=== PATIENT | female | born 1945 | race Caucasian/White ===

== ENCOUNTER 2019-08-30 13:55 | Outpatient (CLI) | payer MEDICARE, SELFPAY ==
--- NOTE | 2019-08-30 | XR_ITS ---
WS: [id number] SCREENING DEXA SCAN [employer] CLINICAL INFORMATION: POSTMENOPAUSAL COMPARISON: FINDINGS: The L1-L4 bone mineral density measures -0.5. This corresponds to a T score score of -0.5 and Z score of 0.7. Left femoral neck bone mineral density measures 1.086. This corresponds to a T score of 0.6 and Z sco re of 1.9. Right femoral neck bone mineral density measures 1.028. This corresponds to a T score 0.2of and Z sco re of 1.5. Mean femoral neck bone mineral density measures 1.057. This corresponds to a T score of 0.4 and Z sco re of 1.7. XR/XR DEXA axial skeleton* [id number] IMPRESSION: Normal bone mineralization. Patient's FRAX calculated 10 year probability for major osteoporotic fracture i s 8.2 % and osteoporotic hip fracture is 0.8%.
--- NOTE | 2019-08-30 14:05 | XR_ITS ---
WS: [id number] SCREENING DEXA SCAN [employer] CLINICAL INFORMATION: POSTMENOPAUSAL COMPARISON: 017 FINDINGS: The L1-L4 bone mineral density measures -0.5. This corresponds to a T score score of -0.5 and Z score of 0.7. Left femoral neck bone mineral density measures 1.086. This corresponds to a T score of 0.6 and Z sco re of 1.9. Right femoral neck bone mineral density measures 1.028. This corresponds to a T score 0.2of and Z sco re of 1.5. Mean femoral neck bone mineral density measures 1.057. This corresponds to a T score of 0.4 and Z sco re of 1.7.
== END 2019-08-30 13:56 | disposition home or self-care (01) ==
PROVIDERS: Family Provider Physician Assistant; PCP Physician Assistant; Referring Provider Physician Assistant; Visit Provider Nurse Practitioner Women's Health
DX: Z78.0 Asymptomatic menopausal state (principal)
CPT/HCPCS: 77080

== ENCOUNTER 2020-01-27 12:01 | Outpatient (RCR) | payer MEDICARE, SELFPAY | END 2020-02-13 13:34 | disposition home or self-care (01) | LOC: SPT 12:01 | PROVIDERS: PCP Physician Assistant; Referring Provider Physician Assistant; Visit Provider Physician Assistant | DX: M25.512 Pain in left shoulder (principal); S16.1XXD Strain of muscle, fascia and tendon at neck level, subsequent encounter; X58.XXXD Exposure to other specified factors, subsequent encounter | CPT/HCPCS: 97110; 97140; 97162 ==

== ENCOUNTER → 2020-04-23 14:30 | Outpatient (BNVA) | payer MEDICARE, SELFPAY | PROVIDERS: PCP Physician Assistant; Referring Provider Dermatology; Visit Provider Dermatology | DX: Z85.828 Personal history of other malignant neoplasm of skin (principal); L57.0 Actinic keratosis; L72.0 Epidermal cyst; D18.01 Hemangioma of skin and subcutaneous tissue; L81.4 Other melanin hyperpigmentation; L82.1 Other seborrheic keratosis | CPT/HCPCS: 17000; 99203 ==

== ENCOUNTER 2020-07-20 09:34 | Outpatient (CLI) | payer MEDICARE, SELFPAY ==
--- NOTE | 2020-07-20 09:54 | MM_ITS ---
WS: [id number] BILATERAL DIGITAL SCREENING MAMMOGRAPHY WITH CAD CLINICAL INFORMATION: SCREENING HISTORY: Screening mammogram. No current complaints. COMPARISON: July 18, 2019. TECHNIQUE: Bilateral CC and MLO views. FINDINGS: Scattered fibroglandular densities bilaterally. No suspicious focal mass, asymmetry, calcifications, or architectural distortion. No evidence of malignancy. Benign punctate calcifications both breasts. MM/[place] [id number] IMPRESSION: BI-RADS: 2-Benign FOLLOW UP: 1 Year Follow-up Recommend return to annual screening mammography.
== END 2020-07-20 09:35 | disposition home or self-care (01) ==
LOC: RADSHAW 09:37
PROVIDERS: PCP Physician Assistant; Visit Provider Physician Assistant
DX: Z12.31 Encounter for screening mammogram for malignant neoplasm of breast (principal)
CPT/HCPCS: 77067

== ENCOUNTER 2021-03-04 06:59 | Outpatient (CLI) | payer MEDICARE, SELFPAY ==
--- NOTE | 2021-03-04 07:15 | ECG_ITS ---
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 Baseline heart rate was 69 beats per minute. Baseline blood pressure was 111/91 millimeters of mercury. Target heart rate was 146 beats per minute. Maximum heart rate achieved was 134, which was 91 % of the target heart rate. Maximum blood pressure was 169/107 millimeters of mercury. Total exercise time was 5 minutes 57-seconds. Maximum METs achieved was 7.0, maximum VO2 was 24.5. The reason for ending the test was maximum effort achieved. The patient complained of shortness of breath during the stress test, which then resolved at the end of the test. ELECTROCARDIOGRAM: BASELINE: Showed sinus rhythm, normal axis, anterolateral T wave inversion cannot rule out ischemia EXERCISE: At the peak exercise level, no significant ST-T changes suggestive of ischemia noted. RECOVERY: During the recovery period, heart rate dropped appropriately. No significant ST-T changes in the recovery suggestive of ischemia noted. CONCLUSION: 1. Exercise capacity fair. 2. Heart rate response was appropriate. 3. Blood pressure response was appropriate. 4. Symptoms not suggestive of ischemia. 5. Electrocardiogram portion of the stress test was not suggestive of ischemia. 6. Nuclear scan will be documented separately. Electronically Signed On 03-05-2021 14:41:28 CDT by VALENCIA MEDRANO [email or web address]
--- NOTE | 2021-03-04 07:16 | NMCV_ITS ---
NM alcides perf SPECT r/s* [id number] Cindy Soto Age: 75 Gender: F : 1945 Exam Date: 03/04/2021 08:21 Ordering Phys: Destiny Stanley Technologist: KASIA Good Exam Location: [facility] Indications: SHORTNESS OF BREATH STRESS TEST Please see separate stress test report in [facility] for full findings IMAGE PROTOCOL Rest/Stress 1 Exercise Day Radiopharmaceutical Dose (mCi) Administration Site Administered by Rest: Tc-99m 10.8 IV KASIA Glass Sestamibi Stress:Tc-99m 32.8 IV KASIA Good Sestaminicole Rest: 04-Mar-2021 60 Discovery 630 Stress: 04-Mar-2021 15 Discovery 630 Radiopharmaceutical was injected at 89 % maximum heart rate. Images obtained in supine and prone position. SPECT RESULTS Technical Quality: Excellent Raw Data Analysis: Normal Image Corrections: No attenuation or motion correction applied Summed Stress Score: 0 Summed Rest Score: 0 Summed Difference Score: 0 PERFUSION FINDINGS SPECT images demonstrate homogeneous tracer distribution throughout the myocardium. FUNCTIONAL RESULTS (calculated via Gated SPECT) Stress Image LV EF (%): 72 Stress EDV (mL):68 TID: 0.95 Stress ESV (mL):19 Rest Image LV EF (%): 72 FUNCTIONAL FINDINGS: There is normal left ventricular systolic function. IMPRESSIONS Myocardial perfusion imaging is normal. It is low probability for obstructive coronary artery disease. EKG segment will be documented separately. Prince Kim MD (Electronically Signed) Final Date: 04 March 2021 13:56 S
[2021-03-04 07:17] VITALS: BMI 33.0
[2021-03-04 09:44] VITALS: BP 117/90; PULSE 81
== END 2021-03-04 07:00 | disposition home or self-care (01) ==
LOC: RAD 07:04 → CDL 07:15
PROVIDERS: PCP Physician Assistant; Visit Provider Physician Assistant
DX: R06.02 Shortness of breath (principal)
CPT/HCPCS: 78452; 93017; A9500

== ENCOUNTER 2021-07-26 07:58 | Outpatient (CLI) | payer MEDICARE, SELFPAY ==
--- NOTE | 2021-07-26 08:06 | MM_ITS ---
WS: [id number] BILATERAL SCREENING DIGITAL MAMMOGRAM WITH CAD HISTORY: SCREENING COMPARISON: 11/18/2019, 09/17/2018 Bilateral CC and MLO views submitted. Computer aided detection analyzed. Breast composition: There are scattered areas of fibroglandular density. No suspicious masses, microc alcifications or architectural distortion. Benign calcifications within each breast. MM/[place] [id number] IMPRESSION: BI-RADS: 2-Benign FOLLOW UP: 1 Year Follow-up
== END 2021-07-26 07:59 | disposition home or self-care (01) ==
LOC: RADSHAW 08:02
PROVIDERS: PCP Physician Assistant; Visit Provider Physician Assistant
DX: Z12.31 Encounter for screening mammogram for malignant neoplasm of breast (principal)
CPT/HCPCS: 77067

== ENCOUNTER 2022-01-24 07:33 | Emergency (ER) | payer MEDICARE, SELFPAY ==
[2022-01-24 07:38] VITALS: BP 170/87; PULSE 61; RESP 14; TEMP 36.7; O2SAT 95; BMI 31.1
--- NOTE | 2022-01-24 08:07 | CTR_ITS ---
PROCEDURE INFORMATION: Exam: CT Head Without Contrast Exam date and time: 01/24/2022 8:19 AM Age: 76 years old Clinical indication: Pain; Patient HX: C/O worsening persistent occipital headache x 2 weeks. TECHNIQUE: Imaging protocol: Computed tomography of the head without contrast. Radiation optimization: All CT scans at this facility use at least one of these dose optimization techniques: automated exposure control; mA and/or kV adjustment per patient size (includes targeted exams where dose is matched to clinical indication); or iterative reconstruction. COMPARISON: CR XR cervical spine 4-5V [id number] 01/23/2020 11:31 AM RADIATION DOSE METRICS: Total DLP (mGy-cm): 970.6 FINDINGS: Brain: No acute hemorrhage identified. No large territorial areas of hypoattenuation concerning for ischemic infarct identified. No intracranial mass effect. Cerebral ventricles: The ventricles are within normal limits. Paranasal sinuses: The visualized sinuses are unremarkable. Mastoid air cells: The visualized mastoid air cells are well aerated. Bones/joints: The osseous structures are intact. Soft tissues: Unremarkable. CT/CT head wo con* [id number] IMPRESSION: No acute intracranial abnormality.
--- NOTE | 2022-01-24 08:42 | ED_ITS ---
HPI - Headache General: Chief Complaint: Headache Stated Complaint: Back of Head aching around to the ear Time Seen by Provider: 01/24/22 07:53 History of Present Illness: Patient comes in with pain in the back of her head. She describes it as an ache, that starts in her left occipital region and radiates to around her left ear. States she had an episode similar to this about 6 months ago that resolved. States this episode started about 2 weeks ago and has been constant. States that she is also dealing with a tooth that needs to be repaired. States it is in her left lower posterior jaw. States she is scheduled to have it taken care of tomorrow. Associated symptoms: Deny chest pain, fever(s), nausea, rash or vomiting Review of Systems Const: Denies: fever(s) or body aches Eyes: Denies: change in vision or blurry vision ENMT: Denies: throat pain or odynophagia Card: Denies: chest pain or palpitations Resp: Denies: dyspnea or productive cough GI: Denies: abdominal pain, nausea or vomiting : Denies: flank pain or dysuria Musc: Denies: neck pain or back pain Skin/Breast: Denies: rash or pruritus Neuro: Reports: headache(s); Denies: numbness in extremities Psych: Denies: anxiety or change in appetite Endo: Denies: polyuria or excessive sweating PFSH ED PFSH: Medical History (Updated 01/24/22 @ 09:05 by Nathaniel Cowan MD) Anal skin tag (~2007) 08/14/08- excision of external hemorrhoids/ anal tag. DX: external hemorroid/ tag. Performed by DR Wallis. Glaucoma History of closed shoulder dislocation History of failure to thrive syndrome History of nonmelanoma skin cancer Hypertension No pertinent past medical history neghx:dm,thyroid,dvt/pe PCP: Destiny ASHLEY Postmenopausal Recurrent oral herpes simplex Surgical History (Updated 12/23/21 @ 15:58 by Sariah Mancuso APN, CANDELARIA) H/O eye surgery (~11/2021) Hx of arthroscopic knee surgery (~2005) Hx of carpal tunnel repair (~2012) Hx of cataract surgery (~2014) Hx of hysterectomy (~2000) -----> NORM , BSO for fibroid ------> 2000- Performed at [facility] [place] by Dr Montgomery Hx of rotator cuff surgery (~2014) 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 Hx of tubal ligation Family History Mother Breast cancer dx age 70's Colon cancer dx age 50's Hypercholesteremia Hypertension Cervical cancer dx age late 70's Father Thyroid disease Denies family history of Ovarian cancer Diabetes Heart disease Uterine cancer Stroke Physical Exam Const: COMMON NORMALS: no acute distress, patient oriented x3, healthy appearing and alert HENMT: COMMON NORMALS: normocephalic and atraumatic HEAD & SCALP: normocephalic and atraumatic Eye: COMMON NORMALS: Equal, round and reactive pupils present and EOMs intact bilaterally PUPIL: Yes Equal, round and reactive pupils present Neck/C-Spine: COMMON NORMALS: full ROM and supple Resp: COMMON NORMALS: normal respiratory effort, No retractions and No use of accessory muscles Cardio: COMMON NORMALS: regular rate and regular rhythm RATE: regular rate RHYTHM: regular rhythm GI: COMMON NORMALS: Normal to inspection, nondistended, normoactive bowel sounds present, Soft to palpation and non-tender PALPATION: Yes Soft to palpation Back/Pelvis: COMMON NORMALS: thoracic and lumbar spine normal to inspection and no thoracic nor lumbar tenderness Extremity: COMMON NORMALS: normal to inspection and full ROM Neuro: COMMON NORMALS: patient oriented x3 SENSORIUM/ORIENTATION: Yes alert Psych: COMMON NORMALS: mental status grossly normal and cooperative Skin: COMMON NORMALS: no rashes or lesions noted and no wounds GENERAL SKIN EXAM: no rashes or lesions noted Course Vital Signs: Vital signs: Vital Signs Temperature 98.0 F 01/24/22 07:38 Pulse Rate 61 01/24/22 07:38 Respiratory Rate 14 01/24/22 07:38 Blood Pressure 170/87 01/24/22 07:38 Pulse Oximetry 95 01/24/22 07:38 MDM - Headache Medical Decision Making Patient comes in with pain in the back of her head. She describes it as an ache, that starts in her left occipital region and radiates to around her left ear. States she had an episode similar to this about 6 months ago that resolved. States this episode started about 2 weeks ago and has been constant. States that she is also dealing with a tooth that needs to be repaired. States it is in her left lower posterior jaw. States she is scheduled to have it taken care of tomorrow. Physical exam is unremarkable. Will check CT scan, and reassess. On reassessment I talked to the patient about the test results. Will discharge home at this time with precautions return for worsening or changing symptoms. Lab Data Radiology Impressions Head CT 01/24/22 08:07 IMPRESSION: No acute intracranial abnormality. Discharge Plan Discharge Patient Disposition: Home Clinical Impression: Occipital pain Condition: Stable Prescriptions: No Action acyclovir 400 mg tablet 400 mg PO BID PRN0RF atorvastatin 10 mg tablet 10 mg PO DAILY 0RF Lumigan 0.01 % drops 1 drop ophthalmic (eye) DAILY 0RF lisinopril 10 mg tablet 10 mg PO DAILY 0RF escitalopram oxalate 10 mg tablet 10 mg PO DAILY 0RF multivitamin Tablet 1 tab PO DAILY 0RF Premarin 0.625 mg/gram cream See Rx Instructions .ROUTE .COMPLEX Qty: 30 3RF Dose Instruction: INSERT 0.3125MG (1/2 GRAM) VAGINALLY TWICE PER WEEK Rx Instructions: INSERT 0.3125MG (1/2 GRAM) VAGINALLY TWICE PER WEEK Discharge Orders: Discharge ED (Routine); Ordered 01/24/22 Ordered By: Nathaniel Cowan Referrals: Destiny Stanley PA [Primary Care Provider] - Coding Level of Care Code ED Bit[employer] 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
== END 2022-01-24 09:16 | disposition home or self-care (01) ==
PROVIDERS: Emergency Provider Emergency Medicine; PCP Physician Assistant
DX: M54.81 Occipital neuralgia (principal)
CPT/HCPCS: 70450; 99283

== ENCOUNTER 2022-02-01 06:00 | Outpatient (RCR) | payer MEDICARE, SELFPAY | END 2022-02-24 23:59 | disposition home or self-care (01) | LOC: SPT 06:00 | PROVIDERS: PCP Physician Assistant; Referring Provider Physician Assistant; Visit Provider Physician Assistant | DX: M54.2 Cervicalgia (principal) | CPT/HCPCS: 97035; 97110; 97140; 97162 ==

== ENCOUNTER 2022-02-24 08:38 | Outpatient (CLI) | payer MEDICARE, SELFPAY ==
--- NOTE | 2022-02-24 08:41 | MR_ITS ---
WS: [id number] MRI CERVICAL SPINE NONCONTRAST TECHNIQUE: Sagittal T1, T2 and STIR imaging. Axial T2, gradient, and fiesta imaging. Sagittal T2 fat sat and axial T2 fat sat of the neck. CLINICAL INFORMATION: NECK PAIN COMPARISON: None. FINDINGS: Straightening of the normal cervical lordosis. Cord signal is normal. No high-grade central canal nati nosis. Slight anterolisthesis C4 on C5, C5 on C6, C6 on C7, and C7 on T1. C2-C3: Advanced LEFT facet arthropathy. Severe LEFT bony foraminal narrowing. RIGHT foramen is patent . Spinal canal is patent. C3-C4: Mild disc bulging. Advanced LEFT facet arthropathy. Moderate LEFT and no RIGHT foraminal narro wing. Spinal canal is patent. C4-C5: Slight anterolisthesis. Moderate facet arthropathy worse in the LEFT. Moderate bilateral bony foraminal narrowing. C5-C6: Slight anterolisthesis C5 on C6. Moderate facet arthropathy worse in the LEFT. Moderate LEFT a nd mild RIGHT bony foraminal narrowing. C6-C7: Slight anterolisthesis C6 on C7. Mild to moderate LEFT and no significant RIGHT foraminal narr owing. Spinal canal is patent. Mild facet arthropathy. C7-T1: Slight anterolisthesis C7 on T1. Disc osteophytic ridging with moderate RIGHT and mild LEFT fo raminal narrowing. Tiny disc protrusions in the upper thoracic spine at T1-T2 and T2-T3. Small vessel changes in the tommy. Normal posterior fossa. Mastoid air cells are well aerated. Parotid glands are normal. Normal submandibular glands. Normal palatine tonsils. Normal epiglottis. Normal v allecula. Normal glottis and subglottic airway. MR/MR cervical spin wo con* [id number] IMPRESSION: 1. Straightening of the normal cervical lordosis with moderate spondylitic reyna nges. 2. No high-grade central canal stenosis. Cord signal is normal. 3. Advanced facet arthropathy LEFT C2-C3, LEFT C3-C4, and moderate to advanced LEFT C4-C5. 4. Severe LEFT C2-C3 bony foraminal narrowing. 5. Moderate bony foraminal narrowing LEFT C3-C4, LEFT C4-C5, LEFT C5-C6 and RI GHT C7-T1. 6. Visualized neck soft tissues are normal.
== END 2022-02-24 08:39 | disposition home or self-care (01) ==
PROVIDERS: PCP Physician Assistant; Visit Provider Physician Assistant
DX: M54.2 Cervicalgia (principal)
CPT/HCPCS: 72141

== ENCOUNTER 2022-02-25 06:00 | Outpatient (RCR) | payer MEDICARE, SELFPAY | END 2022-03-27 23:59 | disposition home or self-care (01) | LOC: SPT 06:00 | PROVIDERS: PCP Physician Assistant; Referring Provider Physician Assistant; Visit Provider Physician Assistant | DX: M54.2 Cervicalgia (principal) | CPT/HCPCS: 97530 ==

== ENCOUNTER 2022-05-05 12:17 | Outpatient (CLI) | payer MEDICARE, SELFPAY ==
--- NOTE | 2022-05-05 13:00 | XR_ITS ---
WS: [id number] DEXA (DUAL ENERGY X-RAY ABSORPTIOMETRY) Bone mineral density was performed using a [employer] machine. HISTORY: Z78.0 - Asymptomatic menopausal state COMPARISON: 08/30/2019 Lumbar spine BMD (L1-L4): 1.139 g/cm2 T score: -0.3 Z score: 0.9 Total hip BMD: Left: 1.041 g/cm2. T score: 0.3 Z score: 1.7 Right: 1.000 g/cm2. T score: -0.1 Z score: 1.4 10 year probability of a major osteoporotic fracture is 22.9%. Compared to the prior study from 08/30/2019. Lumbar spine bone mineral density has increased by 2.2%. Bilateral hips bone mineral density has decreased by 3.5%. XR/XR DEXA axial skeleton* [id number] IMPRESSION: NORMAL BONE MINERAL DENSITY based upon the WHO classification for females. Significant increase in bone mineral density within the lumbar spine but also a significant decrease of bone mineral density within the hips.
== END 2022-05-05 12:18 | disposition home or self-care (01) ==
LOC: RAD 12:18
PROVIDERS: PCP Physician Assistant; Visit Provider Nurse Practitioner Women's Health
DX: Z78.0 Asymptomatic menopausal state (principal); Z13.820 Encounter for screening for osteoporosis
CPT/HCPCS: 77080

== ENCOUNTER 2022-07-28 09:32 | Outpatient (CLI) | payer MEDICARE, SELFPAY ==
--- NOTE | 2022-07-28 09:39 | MM_ITS ---
WS: [id number] BILATERAL SCREENING DIGITAL TOMOSYNTHESIS MAMMOGRAM WITH CAD HISTORY: SCREENING COMPARISON: 07/26/2021, 07/20/2020 and 07/18/2019 Bilateral CC and MLO views with tomosynthesis and synthetic mammography submitted. Computer aided det ection analyzed. Breast composition: There are scattered areas of fibroglandular density. No suspicious masses, microc alcifications or architectural distortion. Benign scattered calcifications in each breast. MM/[place] [id number] IMPRESSION: BI-RADS: 2-Benign FOLLOW UP: 1 Year Follow-up
== END 2022-07-28 09:33 | disposition home or self-care (01) ==
LOC: RAD 09:33
PROVIDERS: PCP Physician Assistant; Visit Provider Physician Assistant
DX: Z12.31 Encounter for screening mammogram for malignant neoplasm of breast (principal)
CPT/HCPCS: 77063; 77067

== ENCOUNTER → 2023-03-01 07:29 | Outpatient (BNVA) | payer MEDICARE, SELFPAY | PROVIDERS: PCP Physician Assistant; Visit Provider Psychiatry & Neurology Neurology | DX: M54.81 Occipital neuralgia (principal); R51.9 Headache, unspecified; M48.02 Spinal stenosis, cervical region; Z98.890 Other specified postprocedural states; Z86.69 Personal history of other diseases of the nervous system and sense organs; M19.041 Primary osteoarthritis, right hand; M19.042 Primary osteoarthritis, left hand; F32.A Depression, unspecified | CPT/HCPCS: 99203 ==

== ENCOUNTER 2023-03-02 08:30 | Outpatient (CLI) | payer MEDICARE, SELFPAY ==
--- NOTE | 2023-03-02 08:40 | MR_ITS ---
WS: [id number] MRI BRAIN WITHOUT CONTRAST HISTORY: OCCIPITAL NEURALGIA COMPARISON: None available. TECHNIQUE: Diffusion imaging, multiplanar T1, T2 and FLAIR imaging obtained. No evidence for acute infarct or hemorrhage. Dawkins-white matter differentiation is normal. Minimal atrophy and very minimal small vessel ischemic type changes. Mild small vessel ischemic sweeney e in the tommy. No prior infarct. No remote or acute infarcts are volume loss. Ventricles and extra-axial spaces are normal. No inferior displacement of cerebellar tonsils. The sella turcica and pituitary gland are unremarkabl e. Dural venous sinuses and flandreau of Phipps demonstrate no abnormality on this unenhanced studies. Paranasal sinuses: Clear. Mastoid air cells: Normal. Calvarium and scalp: Intact. MR/MR head wo con* [id number] IMPRESSION: 1. No acute infarct or hemorrhage. 2. Very mild atrophy and small vessel ischemic disease. 3. No ventriculomegaly.
--- NOTE | 2023-03-02 08:40 | MR_ITS ---
WS: [id number] MRI CERVICAL SPINE NONCONTRAST HISTORY: FACET Arthropathy, cervical/cervicalgia COMPARISON: 02/24/2022 Technique: Multiplanar, multisequence noncontrast imaging of the cervical spine. Mild straightening of the normal cervical lordosis. No marrow edema or fracture. Disc spaces are very mildly narrowed throughout. Signal within the cervical cord is normal. Visualized posterior fossa is unremarkable. Craniocervical junction, C1 and C2 relationship, odontoid process and soft tissues are normal. C2-C3: Severe facet joint arthritis, greater on the LEFT. Osseous encroachment with severe narrowing of the LEFT foramen and displacement of the nerve roots. Mild to moderate RIGHT facet joint arthritis with mild foraminal stenosis. C3-C4: Bilateral advanced facet joint arthritis, LEFT greater than RIGHT. Small central disc protrusi on. Moderate LEFT and mild RIGHT foraminal stenosis. C4-C5: Mild annular disc bulging with moderate bilateral facet joint arthritis. Moderate bilateral fo raminal stenosis predominantly due to facet disease. C5-C6: Diffuse annular disc bulging with moderate bilateral facet joint arthritis. Facet joint arthri tis greatest on the LEFT. Moderate bilateral foraminal stenosis. C6-C7: Diffuse annular disc bulging with osteophytic ridging and moderate facet joint arthritis. Mode rate bilateral foraminal stenosis and mild central stenosis. C7-T1: Mild osteophytic ridging. Moderate RIGHT and mild LEFT foraminal narrowing. Very small central disc protrusions at T1-2 and T2-3. Very mild anterior wedging of T4. MR/MR cervical spin wo con* [id number] IMPRESSION: 1. Multilevel facet joint arthritis resulting in foraminal stenoses as above. Stenoses predominantly due to facet disease and bony hypertrophy. Not significa ntly progressed since 02/24/2022. 2. C2-3: Severe stenosis LEFT foramen due to bone hypertrophy. Mild to moderat e on the RIGHT. 3. C3-4: Moderate LEFT and mild RIGHT foraminal stenosis. 4. C4-5, C6-7: Moderate bilateral foraminal stenosis due to facet disease. 5. C7-T1: Moderate RIGHT and mild LEFT foraminal stenosis.
== END 2023-03-02 08:31 | disposition home or self-care (01) ==
PROVIDERS: PCP Physician Assistant; Visit Provider Nurse Practitioner Family
DX: M48.03 Spinal stenosis, cervicothoracic region (principal); M47.813 Spondylosis without myelopathy or radiculopathy, cervicothoracic region; M54.81 Occipital neuralgia; M54.2 Cervicalgia
CPT/HCPCS: 70551; 72141

== ENCOUNTER → 2023-04-10 14:25 | Outpatient (BNVA) | payer MEDICARE, SELFPAY | PROVIDERS: PCP Physician Assistant; Visit Provider Dermatology | DX: L82.1 Other seborrheic keratosis (principal); L81.4 Other melanin hyperpigmentation; D18.01 Hemangioma of skin and subcutaneous tissue; L72.0 Epidermal cyst; Z08 Encounter for follow-up examination after completed treatment for malignant neoplasm; Z85.828 Personal history of other malignant neoplasm of skin; L82.0 Inflamed seborrheic keratosis; L29.8 Other pruritus; L53.8 Other specified erythematous conditions; L57.0 Actinic keratosis | CPT/HCPCS: 17000; 17003; 17110; 99213 ==

== ENCOUNTER → 2023-05-15 14:49 | Outpatient (BNVA) | payer MEDICARE, SELFPAY | PROVIDERS: PCP Physician Assistant; Visit Provider Psychiatry & Neurology Neurology | DX: M54.81 Occipital neuralgia (principal); I10 Essential (primary) hypertension | CPT/HCPCS: 99212 ==

== ENCOUNTER 2023-05-26 14:09 | Outpatient (CLI) | payer MEDICARE, SELFPAY ==
--- NOTE | 2023-05-26 14:30 | CT_ITS ---
WS: [email or web address] CTA HEAD AND NECK TECHNIQUE: Contrast enhanced CTA of the head and neck with coronal and sagittal reformatted images an d maximum intensity projection (MIP) images. NASCET criteria utilized. CLINICAL INFORMATION: M54.81 - Occipital neuralgia COMPARISON: None. DLP: 1195.[address] scans at [facility] use at least one of these dose optimization techniques: automated e xposure control; mA and/or kV adjustment per patient size (includes targeted exams where dose is matc hed to clinical indication); or iterative reconstruction. FINDINGS: No evidence of intracranial hemorrhage or mass effect. Ventricular system and basilar ciste rns are patent. Mild small vessel changes. Mild parenchymal volume loss. Paranasal sinuses and mastoi d air cells are well aerated. Normal posterior nasopharynx. Intracranial vascular calcification. RIGHT: RIGHT common carotid artery is patent. No significant RIGHT ICA stenosis. RIGHT ICA is patent to the skull base. LEFT: LEFT common carotid artery is patent. No significant LEFT ICA stenosis. LEFT ICA is patent to t he skull base. Retropharyngeal course RIGHT greater than LEFT cervical ICAs. RIGHT dominant vertebral artery. Smalle r but patent LEFT vertebral artery mainly ends in the posterior inferior cerebellar artery. Somewhat diminutive but patent basilar artery. Robust RIGHT posterior communicating artery. Tiny LEFT posterio r communicating artery. Normal vascularity to the OVEN TENDER territories bilaterally. Both ICAs are patent at the skull base. Mild cavernous carotid calcification. Absent RIGHT A1 segment . Normal vascularity to the MCA territories bilaterally. Small calcified RIGHT thyroid nodule. Lung apices are well aerated. Mild spondylitic changes cervical spine with slight anterolisthesis C3 on C4 C4 on C5 and C5 on C6. IMPRESSION: 1. No significant ICA stenosis bilaterally. 2. RIGHT dominant vertebral artery with smaller LEFT vertebral artery which mainly ends in PICA. 3. Somewhat diminutive basilar artery which remains patent. Robust RIGHT posterior communicating art karlene. 4. Absent RIGHT A1 segment. Otherwise unremarkable intracranial CTA. 5. Mild spondylitic changes cervical spine.
[2023-05-26 15:14] LABS: Blood Urea Nitrogen 14 mg/dL (8-23)
[2023-05-26] MEDS: iohexol 350 mg/mL 500 mL Btl (per mL) IV (15:18)
== END 2023-05-26 14:10 | disposition home or self-care (01) ==
PROVIDERS: PCP Physician Assistant; Visit Provider Psychiatry & Neurology Neurology
DX: E78.5 Hyperlipidemia, unspecified (principal); I10 Essential (primary) hypertension; M54.81 Occipital neuralgia
CPT/HCPCS: 70496; 70498; 82565; 84520; Q9967

== ENCOUNTER 2023-07-31 11:38 | Outpatient (CLI) | payer MEDICARE, SELFPAY ==
--- NOTE | 2023-07-31 11:47 | MM_ITS ---
WS: [id number] BILATERAL SCREENING DIGITAL TOMOSYNTHESIS MAMMOGRAM WITH CAD HISTORY: Z12.39 - Encounter for other screening for malignant neop... COMPARISON: 07/28/2022 and 07/26/2020 Bilateral CC and MLO views with tomosynthesis and synthetic mammography submitted. Computer aided det ection analyzed. Breast composition: There are scattered areas of fibroglandular density. No suspicious masses, microc alcifications or architectural distortion. Benign calcifications in each breast. IMPRESSION: MM/[place] [id number] BI-RADS: 2-Benign FOLLOW UP: 1 Year Follow-up
== END 2023-07-31 11:39 | disposition home or self-care (01) ==
LOC: RAD 11:39
PROVIDERS: PCP Physician Assistant; Visit Provider Nurse Practitioner Women's Health
DX: Z12.31 Encounter for screening mammogram for malignant neoplasm of breast (principal)
CPT/HCPCS: 77063; 77067

== ENCOUNTER → 2023-11-07 14:57 | Outpatient (BNVA) | payer MEDICARE, SELFPAY | PROVIDERS: PCP Physician Assistant; Visit Provider Psychiatry & Neurology Neurology | DX: M54.81 Occipital neuralgia (principal) | CPT/HCPCS: 99212 ==

== ENCOUNTER → 2024-04-10 13:23 | Outpatient (BNVA) | payer MEDICARE, SELFPAY | PROVIDERS: PCP Physician Assistant; Visit Provider Nurse Practitioner Family | DX: L57.0 Actinic keratosis (principal); L82.0 Inflamed seborrheic keratosis; L72.0 Epidermal cyst; L82.1 Other seborrheic keratosis; L81.4 Other melanin hyperpigmentation; D18.01 Hemangioma of skin and subcutaneous tissue | CPT/HCPCS: 17000; 17110; 99213 ==

== ENCOUNTER 2024-08-07 12:25 | Outpatient (CLI) | payer MEDICARE, SELFPAY ==
--- NOTE | 2024-08-07 13:00 | MM_ITS ---
WS: [id number] VIEWS: MLO and CC views both breasts. 3D digital tomosynthesis is also included in this exam. Comparison made with prior exam of 06/09/2008, 06/15/2009, 06/17/2010, 06/21/2011, 06/22/2012, 013, 07/03/2014, 07/07/2015, 07/12/2016, 02/11/2017, 07/16/2018, 07/18/2019, 07/20/2020, 07/26/2021, 07/28/2022, 07/31/2023.. Findings: There are scattered areas of fibroglandular density. No sign of suspicious mass, tumor calcification or architectural distortion. MM/MM scr BI tomosynthesis [id number] Impression: BI-RADS: 2 - Benign FOLLOW-UP: 1 Year Follow-up This mammogram was also analyzed by the Computer Aided Detection System R2 Imag e Claims Service Adjustor.
--- NOTE | 2024-08-07 13:30 | XR_ITS ---
WS: [id number] DEXA (DUAL ENERGY X-RAY ABSORPTIOMETRY) Bone mineral density was performed using a [employer] machine. HISTORY: Z78.0 - Asymptomatic menopausal state COMPARISON: 05/05/2022 Lumbar spine BMD (L1-L4): 1.125 g/cm2 T score: -0.5 Z score: 1.2 Total hip BMD: Left: 1.016 g/cm2. T score: 0.1 Z score: 1.8 Right: 0.968 g/cm2. T score: -0.3 Z score: 1.5 10 year probability of a major osteoporotic fracture is 30.0%. Compared to the prior study from 05/05/2022. Lumbar spine bone mineral density has decreased by 1.2%. Bilateral hips bone mineral density has decreased by 2.7%. XR/XR DEXA axial skeleton* [id number] IMPRESSION: NORMAL BONE MINERAL DENSITY based upon the WHO classification for females. Significant decrease in bone mineral density within the hips since the prior . No significant change in the lumbar spine.
== END 2024-08-07 12:26 | disposition home or self-care (01) ==
PROVIDERS: PCP Physician Assistant; Visit Provider Nurse Practitioner Women's Health
DX: Z12.31 Encounter for screening mammogram for malignant neoplasm of breast (principal); R92.323 Mammographic fibroglandular density, bilateral breasts; Z13.820 Encounter for screening for osteoporosis; Z78.0 Asymptomatic menopausal state
CPT/HCPCS: 77063; 77067; 77080

== ENCOUNTER → 2025-04-02 14:26 | Outpatient (BNVA) | payer MEDICARE, SELFPAY | PROVIDERS: PCP Physician Assistant; Visit Provider Nurse Practitioner Family | DX: L72.0 Epidermal cyst (principal); L57.8 Other skin changes due to chronic exposure to nonionizing radiation; L81.4 Other melanin hyperpigmentation; D22.5 Melanocytic nevi of trunk; L82.1 Other seborrheic keratosis; Z08 Encounter for follow-up examination after completed treatment for malignant neoplasm; Z85.828 Personal history of other malignant neoplasm of skin; Z82.0 Family history of epilepsy and other diseases of the nervous system; R20.8 Other disturbances of skin sensation; Z78.9 Other specified health status; L53.8 Other specified erythematous conditions | CPT/HCPCS: 17000; 17110; 99213 ==

== ENCOUNTER 2025-08-11 09:51 | Outpatient (CLI) | payer MEDICARE, SELFPAY ==
--- NOTE | 2025-08-11 10:00 | MM_ITS ---
WS: [id number] BILATERAL SCREENING DIGITAL TOMOSYNTHESIS MAMMOGRAM WITH CAD HISTORY: Z12.31 - Encounter for screening mammogram for malignant ... COMPARISON: 08/07/2024, 07/31/2023, 07/28/2022 Bilateral CC and MLO views with tomosynthesis and synthetic mammography submitted. Computer aided detection analyzed. Breast composition: There are scattered areas of fibroglandular density. No suspicious masses, microcalcifications or architectural distortion. Benign scattered calcifications in each breast. MM/MM scr tomosynthesis 45000 IMPRESSION: BI-RADS: 2 - Benign. FOLLOW UP: 1 Year Follow-up
== END 2025-08-11 09:52 | disposition home or self-care (01) ==
LOC: RAD 09:52
PROVIDERS: PCP Physician Assistant; Visit Provider Nurse Practitioner Women's Health
DX: Z12.31 Encounter for screening mammogram for malignant neoplasm of breast (principal); R92.323 Mammographic fibroglandular density, bilateral breasts; R92.1 Mammographic calcification found on diagnostic imaging of breast
CPT/HCPCS: 77063; 77067